=== PATIENT | female | born 1945 | race American Indian/Alaskan Native ===

== ENCOUNTER 2017-12-13 13:15 | Emergency (ER) | payer MEDICARE ==
[2017-12-13 14:17] LABS: Basophils % (Auto) 1.4 % (0.0-1.8); Eosinophils % (Auto) 0.5 % (0.0-4.3); Hemoglobin 12.5 gm/dl (10.1-14.3); Mean Corpuscular HGB Conc 34 % (30-34); Mean Corpuscular Hemoglobin 31 pg (28-32); Mean Corpuscular Volume 92 fl (79-97); Monocytes # (Auto) 0.3 K/mm3 (0.0-0.8); Monocytes % (Auto) 9.4 % (0.0-7.3); Platelet Count 197 K/mm3 (140-440); Red Blood Count 4.04 M/mm3 (3.65-5.03); Red Cell Distribution Width 12.7 % (13.2-15.2)
[2017-12-13 14:33] LABS: Calcium 9.4 mg/dL (8.4-10.2)
--- NOTE | 2017-12-13 15:13 | Emergency Department Report ---
ED General Adult HPI - General Chief complaint: Psych Stated complaint: SUICIDAL/AGGRESSIVE Time Seen by Provider: 12/13/17 14:18 Source: patient Mode of arrival: Ambulatory Limitations: No Limitations - History of Present Illness Initial comments: 72-year-old female with past medical history of bipolar disorder and schizophrenia presents after being brought in by her weigh machine operator. Profiler Hand stated that the patient has been combative to multiple individuals in the household. According to the caregiver the patient has been combative towards other individuals with multiple belts within the household. Patient has also been beating the dog according to the caregiver. Patient lives in a correction name [facility]. When asked directly patient denies any suicidal or homicidal ideation. Patient denies any auditory hallucinations. She states she has not been combative and denies any other accounts that were given by the weigh machine operator with this current time is not present. I was able to speak to caregiver who states that for the past four days patient has been more aggressive and has not been sleeping. Patient has been in care of Sameer Limon for five years and she has never been in this condition. Caregiver states that patient has been cursing, and threatening to kill everybody in house. Patient has not been eating and has been walking around the house stating that "you " and " you going to ". - Related Data Home Medications Medication Instructions Recorded Confirmed Last Taken Donepezil [Aricept] 5 mg PO QHS 12/13/17 12/13/17 Unknown Levothyroxine [Synthroid] 25 mcg PO QAM 12/13/17 12/13/17 Unknown Lisinopril 20 mg PO DAILY 12/13/17 12/13/17 Unknown hydroCHLOROthiazide [HCTZ] 25 mg PO QDAY 12/13/17 12/13/17 Unknown traZODone [Desyrel] 50 mg PO QHS 12/13/17 12/13/17 Unknown Allergies Allergy/AdvReac Type Severity Reaction Status Date / Time Unable to Assess Allergy Unverified 12/13/17 13:35 ED Review of Systems ROS: Stated complaint: SUICIDAL/AGGRESSIVE Other details as noted in HPI Constitutional: denies: chills, fever Eyes: denies: eye pain, eye discharge, vision change ENT: denies: ear pain, throat pain Respiratory: denies: cough, shortness of breath, wheezing Cardiovascular: denies: chest pain, palpitations Endocrine: no symptoms reported Gastrointestinal: denies: abdominal pain, nausea, diarrhea Genitourinary: denies: urgency, dysuria, discharge Musculoskeletal: denies: back pain, joint swelling, arthralgia Skin: denies: rash, lesions Neurological: denies: headache, weakness, paresthesias Psychiatric: denies: anxiety, depression Hematological/Lymphatic: denies: easy bleeding, easy bruising ED Past Medical Hx - Past Medical History Hx Psychiatric Treatment: Yes - Social History Smoking Status: Never Smoker - Medications Home Medications: Home Medications Medication Instructions Recorded Confirmed Last Taken Type Donepezil [Aricept] 5 mg PO QHS 12/13/17 12/13/17 Unknown History Levothyroxine [Synthroid] 25 mcg PO QAM 12/13/17 12/13/17 Unknown History Lisinopril 20 mg PO DAILY 12/13/17 12/13/17 Unknown History hydroCHLOROthiazide [HCTZ] 25 mg PO QDAY 12/13/17 12/13/17 Unknown History traZODone [Desyrel] 50 mg PO QHS 12/13/17 12/13/17 Unknown History ED Physical Exam - General Limitations: No Limitations General appearance: alert, in no apparent distress, other (eating food without discomfort) - Head Head exam: Present: atraumatic, normocephalic - Eye Eye exam: Present: normal appearance - ENT ENT exam: Present: mucous membranes moist - Neck Neck exam: Present: normal inspection - Respiratory Respiratory exam: Present: normal lung sounds bilaterally. Absent: respiratory distress - Cardiovascular Cardiovascular Exam: Present: regular rate, normal rhythm. Absent: systolic murmur, diastolic murmur, rubs, gallop - GI/Abdominal GI/Abdominal exam: Present: soft, normal bowel sounds - Extremities Exam Extremities exam: Present: normal inspection - Back Exam Back exam: Present: normal inspection - Neurological Exam Neurological exam: Present: alert, oriented X3, CN II-XII intact, other ( patient moves all extremities without difficulty) - Psychiatric Psychiatric exam: Present: normal affect, normal mood - Skin Skin exam: Present: warm, dry, intact, normal color. Absent: rash ED Course Vital Signs 12/13/17 13:20 Temperature 97.6 F Pulse Rate 95 H Blood Pressure 155/79 O2 Sat by Pulse 96 Oximetry ED Medical Decision Making - Lab Data Result diagrams: 12/13/17 13:52 12/13/17 13:52 - Medical Decision Making Patient placed on a 1013. patient evaluated by mental health as well. She currently is awaiting possible transfer to a geriatric psychiatric facility, possibly [facility], [facility], or [facility]. Patient is tolerating liquid and is otherwise medically clear. Critical care attestation.: If time is entered above; I have spent that time in minutes in the direct care of this critically ill patient, excluding procedure time. ED Disposition Clinical Impression: Psychosis Disposition: DC/TX-65 PSY HOSP/PSY UNIT Is pt being admited?: No Condition: Stable Referrals: PRIMARY CARE, [Primary Care Provider] - 3-5 Days Time of Disposition: 20:42 Print Language: ROMANIAN
[2017-12-13 21:14] LABS: Bilirubin,Urine NEG (Negative); Blood,Urine NEG (Negative); Color,Urine Yellow (Yellow); Mucus,Urine FEW /HPF; Protein,Urine <15 mg/dL mg/dL (Negative); RBC,Urine < 1.0 /HPF (0.0-6.0); Urobilinogen,Urine < 2.0 mg/dL (<2.0)
--- NOTE | 2017-12-14 14:01 | Consultation ---
History of Present Illness - Reason for Consult Consult date: 12/14/17 Reason for consult: Mental Health Evaluation Requesting physician: KYRA SWARTZ - Chief Complaint Chief complaint: "Hello" - History of Present Psychiatric Illness 72-year-old female with past medical history of bipolar disorder and schizophrenia presents after being brought in by her core machine operator. Today the patient is calm, but confused during the assessment. She could not elaborate about what happened at her residence. She was not able to recall 3 numbers within 5 mins nor ID the current [place] President. Per collateral information from her core machine operator Radha Rowan at [phone], she stated that the patient had not slept for several days and been aggressive toward staff. She stated that this is a new behavior by the patient. She stated that the patient takes Trazodone and Aricept. The patient is a poor historian at this time. Per the notes, no behavioral disturbances overnight. No gestures of SI/HI's. Medications and Allergies Allergies Allergy/AdvReac Type Severity Reaction Status Date / Time Unable to Assess Allergy Unverified 12/13/17 13:35 Home Medications Medication Instructions Recorded Confirmed Last Taken Type Donepezil [Aricept] 5 mg PO QHS 12/13/17 12/13/17 Unknown History Levothyroxine [Synthroid] 25 mcg PO QAM 12/13/17 12/13/17 Unknown History Lisinopril 20 mg PO DAILY 12/13/17 12/13/17 Unknown History hydroCHLOROthiazide [HCTZ] 25 mg PO QDAY 12/13/17 12/13/17 Unknown History traZODone [Desyrel] 50 mg PO QHS 12/13/17 12/13/17 Unknown History Past psychiatric history - Past Medical History Past Medical History: other (Unable to obtain) Past Surgical History: Other (Unable to obtain) - past Psychiatric treatment and history psychiatric treatment history: Unable to obtain a psy hx and a fam psy hx. - Social History Social history: other (Reside with a caregiver) Mental Status Exam - Vital signs Last Vital Signs Temp 98.6 F 12/14/17 07:50 Pulse 76 12/14/17 07:50 Resp 16 12/14/17 07:50 BP 147/79 12/14/17 07:50 Pulse Ox 100 12/14/17 07:50 - Exam Narrative exam: MSE: Appearance: calm, cooperative Behavior: regular eye contact Speech: regular rate and tone Mood: "okay" Affect: congruent to mood Thought Process: confused Thought Content: denies SI/HI's and AVH's Motor Activity: ambulatory Cognition: alert Insight: poor Judgment: variable Results Result Diagrams: 12/13/17 13:52 12/13/17 13:52 Abnormal lab results 12/13/17 12/13/17 12/13/17 Range/Units 13:52 13:52 13:52 WBC 3.1 L (4.5-11.0) K/mm3 RDW 12.7 L (13.2-15.2) % [place] % (Auto) 9.4 H (0.0-7.3) % Lymph # 1.0 L (1.2-5.4) K/mm3 Seg Neutrophils # 1.7 L (1.8-7.7) K/mm3 BUN 41 H (7-17) mg/dL Creatinine 1.5 H (0.7-1.2) mg/dL TSH 4.410 H (0.270-4.200) mlU/mL Salicylates (2.8-20.0) mg/dL Acetaminophen (10.0-30.0) ug/mL 12/13/17 12/13/17 Range/Units 13:52 13:52 WBC (4.5-11.0) K/mm3 RDW (13.2-15.2) % [place] % (Auto) (0.0-7.3) % Lymph # (1.2-5.4) K/mm3 Seg Neutrophils # (1.8-7.7) K/mm3 BUN (7-17) mg/dL Creatinine (0.7-1.2) mg/dL TSH (0.270-4.200) mlU/mL Salicylates < 0.3 L (2.8-20.0) mg/dL Acetaminophen < 5.0 L (10.0-30.0) ug/mL All other labs normal. Assessment and Plan Assessment and plan: Impression: Unspecified Neuro Cognitive DO. Today the patient is calm, but confused during the assessment. UDS have not been collected. Recommendation/Plan: Continue 1013 with placement to inpatient psy services. Start Aricept 5 mg PO HS for dementia symptoms and Trazodone 50 mg PO HS for sleep. Attempted to discuss possible sucidality/medication induced crow with the patient reference Trazodone. Recommend Delirium precautions below: 1. Frequently reorient patient and involve him/her in their care (simple explanations of procedures, tests, medications). 2. Lights on and shades open during daytime hours. 3. Write date and goals of care in a visible place. 4. Try to avoid unnecessary interruptions to sleep during nighttime hours. 5. Obtain glasses, hearing aids from home if patient uses these at baseline. 6. Avoid medications that may exacerbate delirium (especially narcotics, benzodiazepines, barbiturates, ambien, lunesta, and medications with excessive anticholinergic properties).
[2017-12-14 17:20] LABS: Amphetamine Screen,Urine PRESUMPTIVE NEGATIVE; Benzodiazepines Screen,Urine PRESUMPTIVE NEGATIVE; Cannabinoid Screen,Urine PRESUMPTIVE NEGATIVE; Cocaine Screen,Urine PRESUMPTIVE NEGATIVE; Methadone Screen,Urine PRESUMPTIVE NEGATIVE; Opiate Screen,Urine PRESUMPTIVE NEGATIVE
--- NOTE | 2017-12-14 18:22 | Emergency Department Report ---
Blank Doc - Documentation Documentation: I was called to come see this patient who is awaiting psych placement. These mobile assessors concerned that patient may have ringworm. Patient does have a quarter-sized lesion on the left posterior scalp. There is no hair coming from this region. There is small papules in a ring pattern with some central erythema that looks like well granulated tissue. This could represent a very dry ringworm but also could be just irritation from rubbing her head against something for long periods of time patient be started on griseofulvin empirically and the lesion will be watched.
[2017-12-14] MEDS ORDERED: HCTZ PO SCH (20:00)
[2017-12-14] MEDS ORDERED: ZESTRIL PO SCH (20:00)
[2017-12-14 20:22] VITALS: BP 138/70
[2017-12-14] MEDS ORDERED: ARICEPT PO SCH ×2 (22:00)
[2017-12-14] MEDS ORDERED: DESYREL PO SCH (22:00)
[2017-12-15] MEDS ORDERED: SYNTHROID PO SCH (06:00)
== END 2017-12-14 23:32 ==
LOC: ED 13:15 → EEVIPCON 13:15 → EDBD 13:15 → ED 12-14 23:32
DX: F29 Unspecified psychosis not due to a substance or known physiological condition (principal)
CPT/HCPCS: 36415; 80048; 80307; 81001; 84443; 85025; 99285; G0480; 80320